=== PATIENT | female | born 1995 | race Caucasian/White ===

== ENCOUNTER 2023-01-07 20:46 | Emergency (ER) | payer MEDICAID ==
[~2023-01-07] VITALS: Ht 165.1 cm; Wt 74.0 kg
[2023-01-07 21:07] VITALS: BP 124/83; O2SAT 99
[2023-01-07] MEDS ORDERED: AMOX-494 MT (22:50)
[2023-01-07 23:33] VITALS: PULSE 69; RESP 18; TEMP 97.6
== END 2023-01-07 23:34 | disposition home or self-care (01) ==
LOC: ER 20:46
DX: H92.01 Otalgia, right ear (principal); F41.9 Anxiety disorder, unspecified
CPT/HCPCS: 99281; 99283